=== PATIENT | female | born 1975 | race Caucasian/White ===

== ENCOUNTER 2021-02-26 16:38 | Inpatient (IN) ==
[2021-02-26] MEDS ORDERED: Ipratropium/Albuterol Neb 3 ML IH ONE (18:46)
[2021-02-26] MEDS ORDERED: predniSONE 20 MG TABLET PO ONE (18:46)
[2021-02-26 20:32] LABS: Hemoglobin 14.5 g/dL (11.5-15.4)
[2021-02-26 20:33] LABS: Hematocrit 43.3 % (35.3-44.9); Mean Corpuscular HGB Conc 33.5 g/dL (31.6-35.5); Mean Corpuscular Hemoglobin 29.5 pg (28.0-33.3); Mean Corpuscular Volume 88.2 fL (83.0-100.0); Mean Platelet Volume 9.9 fL (9.4-12.4); Platelet Count 450 K/mcL (140-400); Red Blood Count 4.91 M/mcL (3.82-4.97); White Blood Count 25.5 K/mcL (4.3-11.1)
[2021-02-26 20:53] LABS: Alanine Aminotransferase 15 Units/L (7-52); Albumin 4.1 g/dL (3.5-5.7); Albumin/Globulin Ratio 1.4 (1.1-2.2); Alkaline Phosphatase 119 Units/L (34-104); Aspartate Amino Transferase 26 Units/L (13-39); BUN/Creatinine Ratio 13 (6-26); Bilirubin,Direct 0.2 mg/dL (0.0-0.2); Bilirubin,Indirect 0.2 mg/dL (0.0-1.0); Bilirubin,Total 0.4 mg/dL (0.3-1.0); Blood Urea Nitrogen 10 mg/dL (6-20); Calcium 9.7 mg/dL (8.6-10.3); Carbon Dioxide 26 mEq/L (23-29); Chloride 101 mEq/L (98-107); Glucose 136 mg/dL (70-105); Osmolality,Calculated 285 (280-300); Sodium 137 mEq/L (136-145); Total Protein 7.1 g/dL (6.4-8.9); Troponin I 0.03 ng/mL (< 0.04); eGFR For African Americans > 60 (> 60); eGFR For Non-African Americans > 60 (> 60)
[2021-02-26] MEDS ORDERED: Ondansetron 4 MG/2 ML VIAL IVP PRN (21:06)
[2021-02-26] MEDS ORDERED: Melatonin 3 MG TABLET PO PRN (21:06)
[2021-02-26] MEDS ORDERED: Naloxone 0.4 MG/ML INJ IVP PRN (21:06)
[2021-02-26] MEDS ORDERED: Acetaminophen 325 MG TABLET PO PRN (21:06)
[2021-02-26 21:08] LABS: Lymphocytes # 6.6 K/mcL (0.6-4.6); Neutrophils # 17.9 K/mcL (1.6-8.9); Platelet Estimate Normal (Normal)
[2021-02-26] MEDS ORDERED: Saline Nasal Spray 44 ML BOTTLE NS PRN (21:29)
[2021-02-26] MEDS ORDERED: Saliva Stimulant 44.3ml BOTTLE PO PRN (21:29)
[2021-02-26] MEDS ORDERED: Isovue-370 500 ML BOTTLE IVP ONE (22:09)
[2021-02-26] MEDS ORDERED: Furosemide 20 MG/2 ML VIAL IVP ONE (22:13)
[2021-02-26] MEDS ORDERED: Nicotine 2 MG GUM BC PRN (23:18)
[2021-02-26 23:50] LABS: Bilirubin,Urine Negative (Negative); Blood,Urine Negative (Negative); Clarity,Urine Clear (Clear); Color,Urine Colorless (Yellow); Glucose,Urine (UA) Normal (Normal); Ketones,Urine Negative (Negative); Leukocyte Esterase,Urine Negative (Negative); Nitrite,Urine Negative (Negative); Protein,Urine Trace mg/dL (Neg-Trace); Specific Gravity,Urine > 1.030 (1.010-1.025); Urobilinogen,Urine Normal (Normal)
[2021-02-26] MEDS: cefTRIAXone 1,000 MG in 0.9 % Sodium Chloride Mini Bag 100 ML IVPB SCH (23:52)
[2021-02-27] MEDS ORDERED: Ipratropium 1 PUFF INHALER IH SCH
[2021-02-27] MEDS: Budesonide/Formoterol 160/4.5 1 PUFF INH IH SCH ×2 (00:10→08:10)
[2021-02-27] MEDS: Nicotine 21 MG PATCH.TD24 TD SCH ×2 (00:29→08:45)
[2021-02-27] MEDS: clonazePAM 0.5 MG TABLET PO PRN ×2 (00:29→23:02)
[2021-02-27 01:45] LABS: Adenovirus Not Detected (Not Detect); Coronavirus 229E DETECTED (Not Detect)
[2021-02-27 01:48] LABS: Bordetella Pertussis Not Detected (Not Detect); Chlamydophila pneumoniae Not Detected (Not Detect); Coronavirus HKU1 Not Detected (Not Detect); Coronavirus NL63 Not Detected (Not Detect); Coronavirus OC43 Not Detected (Not Detect); Human Metapneumovirus Not Detected (Not Detect); Human Rhinovirus/Enterovirus Not Detected (Not Detect); Influenza A Subtype 2009 H1 Not Detected (Not Detect); Influenza B Not Detected (Not Detect); Mycoplasma pneumoniae Not Detected (Not Detect); Parainfluenza Virus 1 Not Detected (Not Detect); Parainfluenza Virus 2 Not Detected (Not Detect); Parainfluenza Virus 3 Not Detected (Not Detect); Parainfluenza Virus 4 Not Detected (Not Detect); Respiratory Syncytial Virus Not Detected (Not Detect); SARS-CoV-2 Not Detected (Not Detect)
[2021-02-27 03:21] LABS: Basophils % 0.2 %; Hematocrit 42.8 % (35.3-44.9); Hemoglobin 14.3 g/dL (11.5-15.4); Lymphocytes # 1.9 K/mcL (0.6-4.6); Mean Corpuscular HGB Conc 33.4 g/dL (31.6-35.5); Mean Corpuscular Hemoglobin 29.2 pg (28.0-33.3); Mean Corpuscular Volume 87.3 fL (83.0-100.0); Monocytes # 0.4 K/mcL (0.0-1.3); Monocytes % 2.8 %; Neutrophils # 13.3 K/mcL (1.6-8.9); Platelet Count 430 K/mcL (140-400); White Blood Count 15.8 K/mcL (4.3-11.1)
[2021-02-27 03:36] LABS: C-Reactive Protein 90 mg/L (Less than 10); Lactate Dehydrogenase 451 Units/L (140-271)
[2021-02-27 03:48] LABS: INR 1.1; Prothrombin Time 12.2 Seconds (9.4-12.1)
[2021-02-27 03:49] LABS: Activated Partial Thrombo Time 29.7 Seconds (26.0-36.0)
[2021-02-27 03:53] LABS: Ferritin 468 ng/mL (10-120)
[2021-02-27 03:56] LABS: D-Dimer 409 ng/mLFEU (0-500); Fibrinogen 735 mg/dL (169-393)
[2021-02-27 04:00] LABS: Alanine Aminotransferase 17 Units/L (7-52); Albumin/Globulin Ratio 1.3 (1.1-2.2); Alkaline Phosphatase 121 Units/L (34-104); Aspartate Amino Transferase 25 Units/L (13-39); BUN/Creatinine Ratio 13 (6-26); Bilirubin,Total 0.3 mg/dL (0.3-1.0); Blood Urea Nitrogen 9 mg/dL (6-20); Calcium 9.4 mg/dL (8.6-10.3); Carbon Dioxide 27 mEq/L (23-29); Chloride 103 mEq/L (98-107); Glucose 152 mg/dL (70-105); Magnesium 2.1 mg/dL (1.6-2.6); Osmolality,Calculated 290 (280-300); Phosphorous 2.4 mg/dL (2.7-4.5); Potassium 4.3 mEq/L (3.5-5.1); Sodium 139 mEq/L (136-145); eGFR For African Americans > 60 (> 60); eGFR For Non-African Americans > 60 (> 60)
[2021-02-27] MEDS ORDERED: Isovue-370 500 ML BOTTLE IVP ONE (04:12)
[2021-02-27] MEDS: Ipratropium/Albuterol Neb 3 ML IH SCH ×5 (04:39→20:25)
[2021-02-27] MEDS: *HR* Enoxaparin 40 MG/0.4 ML SYRINGE SQ SCH (06:00)
[2021-02-27] MEDS: cefTRIAXone 1,000 MG in 0.9 % Sodium Chloride Mini Bag 100 ML IVPB SCH (08:45)
[2021-02-27] MEDS: Cholecalciferol (D-3) 1,000 UNIT (25MCG) TABLET PO SCH (08:46)
[2021-02-27] MEDS: Multivit/Ca/Min/Fe/FA 1 TAB TABLET PO SCH (08:46)
[2021-02-27] MEDS: Lactobacillus 1 EACH CAP.SPRINK PO SCH ×2 (08:46→23:02)
[2021-02-27] MEDS: Azithromycin 250 MG TABLET PO SCH (08:46)
[2021-02-27] MEDS: Artificial Tears SOLN 15 ML BOTTLE BOTH EYES SCH ×4 (08:47→23:04)
[2021-02-27] MEDS ORDERED: Chlorhexidine Rinse 15 ML MOUTHWASH MM SCH (09:00)
[2021-02-27] MEDS ORDERED: Furosemide 20 MG/2 ML VIAL IVP SCH (09:00)
[2021-02-27] MEDS ORDERED: predniSONE 20 MG TABLET PO SCH (09:00)
[2021-02-27] MEDS ORDERED: Nicotine 14 MG PATCH.TD24 TD SCH (09:00)
[2021-02-27] MEDS: Ibuprofen 600 MG TABLET PO PRN (23:02)
[2021-02-28] MEDS: Ipratropium/Albuterol Neb 3 ML IH SCH ×7 (00:15→23:32)
[2021-02-28 03:30] LABS: BUN/Creatinine Ratio 20 (6-26); Blood Urea Nitrogen 13 mg/dL (6-20); Carbon Dioxide 27 mEq/L (23-29); Chloride 104 mEq/L (98-107); Glucose 139 mg/dL (70-105); Osmolality,Calculated 290 (280-300); Potassium 3.2 mEq/L (3.5-5.1); Sodium 139 mEq/L (136-145); eGFR For African Americans > 60 (> 60); eGFR For Non-African Americans > 60 (> 60)
[2021-02-28 03:59] LABS: Basophils % 0.2 %; Hematocrit 39.3 % (35.3-44.9); Hemoglobin 12.9 g/dL (11.5-15.4); Immature Granulocytes % 1.1 % (0-4); Lymphocytes # 4.5 K/mcL (0.6-4.6); Lymphocytes % 21.8 %; Mean Corpuscular HGB Conc 32.8 g/dL (31.6-35.5); Mean Corpuscular Hemoglobin 29.2 pg (28.0-33.3); Mean Corpuscular Volume 88.9 fL (83.0-100.0); Mean Platelet Volume 9.9 fL (9.4-12.4); Monocytes % 4.7 %; Platelet Count 445 K/mcL (140-400); Red Blood Count 4.42 M/mcL (3.82-4.97); Red Cell Distribution Width 13.1 % (11.5-14.5); Segmented Neutrophils % 72.2 %; White Blood Count 20.7 K/mcL (4.3-11.1)
[2021-02-28] MEDS: *HR* Enoxaparin 40 MG/0.4 ML SYRINGE SQ SCH (05:45)
[2021-02-28] MEDS: cefTRIAXone 1,000 MG in 0.9 % Sodium Chloride Mini Bag 100 ML IVPB SCH (08:24)
[2021-02-28] MEDS: Cholecalciferol (D-3) 1,000 UNIT (25MCG) TABLET PO SCH (08:26)
[2021-02-28] MEDS: Azithromycin 250 MG TABLET PO SCH (08:26)
[2021-02-28] MEDS: Lactobacillus 1 EACH CAP.SPRINK PO SCH ×2 (08:27→22:01)
[2021-02-28] MEDS: Multivit/Ca/Min/Fe/FA 1 TAB TABLET PO SCH (08:27)
[2021-02-28] MEDS: Nicotine 21 MG PATCH.TD24 TD SCH (08:27)
[2021-02-28] MEDS: Artificial Tears SOLN 15 ML BOTTLE BOTH EYES SCH ×4 (08:28→22:00)
[2021-02-28] MEDS: Ibuprofen 600 MG TABLET PO PRN ×2 (08:40→23:15)
[2021-02-28] MEDS ORDERED: Potassium Chloride Elixir 20 MEQ/15 ML UDC PO ONE (11:45)
[2021-02-28] MEDS: Nystatin SUSP 5 ML UD.LIQ PO SCH (22:01)
[2021-02-28] MEDS: clonazePAM 0.5 MG TABLET PO PRN (23:16)
[2021-03-01 02:43] LABS: Hematocrit 38.3 % (35.3-44.9); Hemoglobin 12.4 g/dL (11.5-15.4); Mean Corpuscular HGB Conc 32.4 g/dL (31.6-35.5); Mean Corpuscular Hemoglobin 28.7 pg (28.0-33.3); Mean Corpuscular Volume 88.7 fL (83.0-100.0); Mean Platelet Volume 9.5 fL (9.4-12.4); Platelet Count 442 K/mcL (140-400); Red Blood Count 4.32 M/mcL (3.82-4.97); White Blood Count 19.2 K/mcL (4.3-11.1)
[2021-03-01 03:04] LABS: BUN/Creatinine Ratio 17 (6-26); Blood Urea Nitrogen 10 mg/dL (6-20); Calcium 8.9 mg/dL (8.6-10.3); Carbon Dioxide 26 mEq/L (23-29); Chloride 107 mEq/L (98-107); Glucose 100 mg/dL (70-105); Osmolality,Calculated 289 (280-300); Potassium 3.9 mEq/L (3.5-5.1); Sodium 140 mEq/L (136-145); eGFR For African Americans > 60 (> 60); eGFR For Non-African Americans > 60 (> 60)
[2021-03-01] MEDS: Ipratropium/Albuterol Neb 3 ML IH SCH ×6 (03:31→23:41)
[2021-03-01] MEDS: *HR* Enoxaparin 40 MG/0.4 ML SYRINGE SQ SCH (06:20)
[2021-03-01] MEDS: Nicotine 21 MG PATCH.TD24 TD SCH (07:41)
[2021-03-01] MEDS: Multivit/Ca/Min/Fe/FA 1 TAB TABLET PO SCH (07:42)
[2021-03-01] MEDS: Lactobacillus 1 EACH CAP.SPRINK PO SCH ×2 (07:42→20:41)
[2021-03-01] MEDS: Nystatin SUSP 5 ML UD.LIQ PO SCH ×4 (07:42→20:41)
[2021-03-01] MEDS: Artificial Tears SOLN 15 ML BOTTLE BOTH EYES SCH ×4 (07:42→20:42)
[2021-03-01] MEDS: Cholecalciferol (D-3) 1,000 UNIT (25MCG) TABLET PO SCH (07:42)
[2021-03-01] MEDS: Azithromycin 250 MG TABLET PO SCH (07:42)
[2021-03-01] MEDS: cefTRIAXone 1,000 MG in 0.9 % Sodium Chloride Mini Bag 100 ML IVPB SCH (07:43)
[2021-03-01] MEDS: MethylPREDNISolone 40 MG/ML VIAL IVP SCH (07:43)
[2021-03-01] MEDS: Ibuprofen 600 MG TABLET PO PRN ×2 (09:06→20:52)
[2021-03-01] MEDS: clonazePAM 0.5 MG TABLET PO PRN (20:52)
[2021-03-02] MEDS: Ipratropium/Albuterol Neb 3 ML IH SCH ×4 (03:38→15:45)
[2021-03-02] MEDS: *HR* Enoxaparin 40 MG/0.4 ML SYRINGE SQ SCH (05:39)
[2021-03-02] MEDS: cefTRIAXone 1,000 MG in 0.9 % Sodium Chloride Mini Bag 100 ML IVPB SCH (09:01)
[2021-03-02] MEDS: Azithromycin 250 MG TABLET PO SCH (09:02)
[2021-03-02] MEDS: Nicotine 21 MG PATCH.TD24 TD SCH (09:02)
[2021-03-02] MEDS: Cholecalciferol (D-3) 1,000 UNIT (25MCG) TABLET PO SCH (09:02)
[2021-03-02] MEDS: Multivit/Ca/Min/Fe/FA 1 TAB TABLET PO SCH (09:02)
[2021-03-02] MEDS: Nystatin SUSP 5 ML UD.LIQ PO SCH ×2 (09:02→12:59)
[2021-03-02] MEDS: Lactobacillus 1 EACH CAP.SPRINK PO SCH (09:02)
[2021-03-02] MEDS: MethylPREDNISolone 40 MG/ML VIAL IVP SCH (09:02)
[2021-03-02] MEDS: Artificial Tears SOLN 15 ML BOTTLE BOTH EYES SCH ×2 (09:03→12:59)
[2021-03-02 10:41] VITALS: BP 142/93; PULSE 84; TEMP 98.6
[2021-03-02 15:48] VITALS: O2SAT 98
== END 2021-03-02 17:39 | disposition home or self-care (01) | DRG 193 ==
LOC: EMEROOARM 16:38 → 3ANU 16:38 → SUATTDRO 20:43 → 3ANU 21:38
PROVIDERS: ADMIT Internal Medicine; ATTEND Internal Medicine